=== PATIENT | male | born 1995 | race Caucasian/White ===

== ENCOUNTER 2017-02-11 12:13 | Observation (INO) | payer BC ==
[2017-02-10 11:04] VITALS: BMI 23.0
[~2017-02-11] VITALS: Ht 188 cm; Wt 80.5 kg
[~2017-02-11 12:13] MED LIST: ACETAMINOPHEN 1000 MG/100 ML IV IV ONE; ALPR0.5T PO; AMPH10TA2 PO; AMPH20CA3 PO; CEFAZOLIN 2000 MG/60 ML D5W IV SCH; DEXAMETHASONE SOD INJ 4 MG/ML VIAL ONE; EpHEDrine SULFATE INJ 50 MG/ML AMP ONE; FENTANYL CITRATE INJ 50 MCG/1 ML 2 ML VIAL ONE; GLYCOPYRROLATE INJ 0.2 MG/ML VIAL ONE; LACTATED RINGER'S 1000ML 1,000 ML IV SCH; LIDOCAINE HCL 2% 2 ML VIAL (20MG/ML) ONE; MIDAZOLAM HCL 1 MG/ML 2ML VIAL ONE; NEOSTIGMINE METHYLSULFATE 5 MG/5 ML SYR ONE; ONDANSETRON INJ 2 MG/ML 2 ML VIAL ONE; PHENYLEPHRINE HCL INJ 10 MG/ML VIAL ONE; PROPOFOL IV EMULSION 10 MG/ML 20 ML VIAL IV ONE; ROCURONIUM BROMIDE 10 MG/ML 5 ML VIAL ONE; SUCCINYLCHOLINE CHLORIDE 20 MG/ML 10 ML VIAL IV ONE; SULF800T23 PO
[2017-02-11 12:25] VITALS: BP 148/86; PULSE 69; TEMP 37.1; O2SAT 98; BMI 23.0
[2017-02-11] MEDS ORDERED: BUPIVACAINE 0.5 % 5 MG/1 ML MPF 30ML VIAL ONE (12:27)
--- NOTE | 2017-02-11 13:01 | History & Physical Bridge Note ---
H&P Re-Evaluation Bridge Note: I have examined the patient, reviewed the History & Physical and in the interval since the performance of the History & Physical I have noted the following changes of clinical significance: No changes noted
[2017-02-11] MEDS ORDERED: HYDR-5688 PO (13:36)
[2017-02-11] MEDS ORDERED: PROPOFOL IV EMULSION 10 MG/ML 20 ML VIAL IV ONE (13:37)
[2017-02-11] MEDS ORDERED: DEXAMETHASONE SOD INJ 4 MG/ML VIAL ONE (13:37)
[2017-02-11] MEDS ORDERED: LACTATED RINGER'S 1000ML 1,000 ML IV SCH (13:58)
--- NOTE | 2017-02-11 13:58 | [facility] Post Operative Brief Note ---
Immediate Operative Summary Operative Date Feb 11, 2017. Pre-Operative Diagnosis Pilonidal sinus abcess. Post-Operative Diagnosis Same as preop. Procedure(s) Performed Incision and Drainage of Pilonidial Sinus/Abscess, debridement Surgeon Dr. Reed Program Host Surgeon(s) None. Estimated Blood Loss 10 ml Findings large cavity- 6x4cm , 3-4 cm deep- entire length of old incision Specimens Pilonidal cyst for routine culture and sensitivity, anaerobic. *Check for MRSA* Drains packing Anesthesia gen Complication(s) None Disposition Recovery Room / PACU
[2017-02-11] MEDS ORDERED: HYDROCODONE/ACETAMOPHEN 5/325MG TAB PO PRN ×2 (14:00)
[2017-02-11] MEDS ORDERED: AMPHETAMINE ASP/SULF/DEXTRAMPH ER 20 MG CAP PO PRN (14:00)
[2017-02-11] MEDS ORDERED: HYDROmorphone INJ 0.5 MG/0.5 ML SYR IV PRN (14:00)
[2017-02-11] MEDS ORDERED: HYDROmorphone INJ 1 MG/ML SYR IV PRN (14:00)
[2017-02-11] MEDS ORDERED: ALPRAZOLAM 0.5 MG TAB PO PRN (14:00)
[2017-02-11] MEDS ORDERED: PROMETHAZINE HCL INJ 25 MG in SODIUM CHLORIDE 0.9% 50ML 50 ML IV PRN (14:00)
--- NOTE | 2017-02-11 14:16 | Discharge Instructions ---
Discharge Instructions Date of Service Feb 11, 2017. Admission Reason for Admission: Pilonidal Sinus Abscess Discharge Discharge Diagnosis / Problem: recurrent pilonidal sinus with abscess Discharge Goals Goal(s): Decrease discomfort, Improve function, Improve disease control Activity Recommendations Activity Limitations: as noted below Lifting Limitations: no more than 25 pounds Exercise/Sports Limitations: until after follow-up appointment May Resume Sexual Activity: when tolerated Shower/Bathe: tomorrow Driving or Machine Use: when comfortable . Instructions / Follow-Up Instructions / Follow-Up SPECIAL CARE INSTRUCTIONS: * Cover incisions and change twice daily if possible- wet gauze with dakins solution and gently pack into wound- cover with gauze * take bactrim as ordered * may shower * May use ibuprofen for pain as tolerated. * Expect some swelling and bruising. Call your doctor if: * Temperature above 101 degrees * Pain not relieved by pain medicine ordered * There is increased drainage or redness from any incision * You have any unanswered questions or concerns [phone]. FOLLOW UP VISIT: If not already scheduled, please call the office for a follow-up visit. call office on Wednesday 02/14- to come in that day to have nurses check wound OFFICE PHONE NUMBER: Dr. Reed Office Current Hospital Diet Patient's current hospital diet: Regular Diet Discharge Diet Recommended Diet: Regular Diet Procedures Procedures Performed: Incision and Drainage of Pilonidial Sinus/Abscess, debridement Pending Studies Studies pending at discharge: no Medical Emergencies . Who to Call and When: Medical Emergencies: If at any time you feel your situation is an emergency, please call 911 immediately. . Non-Emergent Contact Non-Emergency issues call your: Primary Care Provider, Surgeon . "Provider Documentation" section prepared by Barrie Reed. VTE Core Measure Inpt VTE Proph given/why not?: SCD's
[2017-02-11] MEDS ORDERED: KETOROLAC TROMETHAMINE 30 MG/ML VIAL ONE (14:29)
[2017-02-11] MEDS ORDERED: ATROPINE SULFATE 0.1 MG/ML 5ML SYR IV PRN (14:30)
[2017-02-11] MEDS ORDERED: ONDANSETRON INJ 2 MG/ML 2 ML VIAL IV PRN (14:30)
[2017-02-11] MEDS ORDERED: MEPERIDINE HCL 25 MG/ML CARP IV PRN (14:30)
[2017-02-11] MEDS ORDERED: HYDROmorphone INJ 2 MG/ML SYR/VIAL IV PRN (14:30)
[2017-02-11] MEDS ORDERED: FLUMAZENIL 0.1 MG/1 ML 10 ML VIAL IV PRN (14:30)
[2017-02-11] MEDS ORDERED: EpHEDrine SULFATE INJ 50 MG/ML AMP IV PRN (14:30)
[2017-02-11] MEDS ORDERED: NALOXONE HCL 0.4 MG/1 ML VIAL/CARP IV PRN (14:30)
[2017-02-11] MEDS ORDERED: PHENYLEPHRINE 100MCG/ML 5ML SYR IV PRN (14:30)
[2017-02-11] MEDS ORDERED: PROMETHAZINE HCL INJ 12.5 MG in SODIUM CHLORIDE 0.9% 50ML 50 ML IV PRN (14:30)
[2017-02-11] MEDS ORDERED: LABETALOL HCL IV 5 MG/ML 20ML IV PRN (14:30)
--- NOTE | 2017-02-11 14:41 | Anesthesiology Progress Note ---
Anesthesia Post Op Note Date & Time Feb 11, 2017 at 14:41 Vital Signs Pain Intensity: 0 Vital Signs Past 12 Hours Date Time Temp Pulse Resp B/P Pulse Ox O2 Delivery O2 Flow Rate FiO2 02/11/17 14:35 36.6 67 13 136/93 100 Nasal Cannula 2 02/11/17 14:25 56 12 138/85 100 Mask 10 02/11/17 14:15 67 13 133/84 100 Mask 10 02/11/17 14:08 36.5 66 12 148/98 100 Mask 10 02/11/17 12:25 37.1 69 18 148/86 98 Room Air Notes Mental Status: alert / awake / arousable, participated in evaluation Pt Amnestic to Procedure: Yes Nausea / Vomiting: adequately controlled Pain: adequately controlled Airway Patency, RR, SpO2: stable & adequate BP & HR: stable & adequate Hydration State: stable & adequate Anesthetic Complications: no major complications apparent
[2017-02-11] MEDS: FENTANYL CITRATE INJ 50 MCG/1 ML 2 ML VIAL IV PRN ×2 (14:48→14:53)
--- NOTE | 2017-02-11 15:07 | OPERATIVE REPORT ---
DATE OF OPERATION: 02/11/2017 NAME OF OPERATION: Incision, drainage and debridement of recurrent pilonidal abscess. PREOPERATIVE DIAGNOSIS: Pilonidal sinus with abscess. POSTOPERATIVE DIAGNOSIS: Same. STAFF SURGEON: Dr. Reed. ANESTHESIA: General. DESCRIPTION OF PROCEDURE: The patient was brought in the operating room and placed on the operating table in the prone position after appropriate anesthetic. His buttocks were taped apart. This was after I was able to shave the hair around the incision which was an old incision in the gluteal crease. The patient had a relatively large area of granulation tissue inferiorly over the coccyx. The site was prepped with Betadine solution and then using a Rosa clamp, I was able to probe the tract. The tract was the entire length of the incision which was approximately 6-7 cm and then on exploration, it did track into the right gluteal area. It was very deep. The old incision was opened, creating a large wound which was approximately 6 x 4 cm and then 3-4 cm deep. There was significant granulation tissue and hair within the wound. The site was cultured. I was able to debride significant granulation tissue and also some scar tissue. I did not sew the skin edges down to the fascia because of the amount of induration and if I tried to debride more tissue it would be a very large wound. I was able to easily pack the site with Betadine gauze and then a gauze covering. The patient tolerated the procedure well and was transferred to the recovery room in stable condition. I attest to the content of the Intraoperative Record and any orders documented therein. Any exceptio ns are noted below.
[2017-02-11] MEDS ORDERED: IV FLUIDS COMPLETED PRN (15:15)
[2017-02-11] MEDS ORDERED: NURSING VERBAL MED ORDER ONE (15:30)
--- NOTE | 2017-02-11 15:58 | Medical Student: [facility] ---
Immediate Operative Summary Operative Date Feb 11, 2017. Pre-Operative Diagnosis Pilonidal Sinus Abscess Post-Operative Diagnosis Same Procedure(s) Performed Pilonidal sinus abscess incision and drainage. Surgeon Dr. Reed Director Acute Surgeon(s) None Estimated Blood Loss 10 ml Findings Pilonidal sinus abscess 6 cm x 3.5 cm. Specimens None Drains None - betadine soaked gauze packing Anesthesia General Disposition Recovery Room / PACU
[2017-02-11 16:01] VITALS: Ht 188 cm; Wt 80.5 kg
[2017-02-11 16:10] VITALS: BP 133/82; PULSE 76; TEMP 36.9; O2SAT 99
[2017-02-11 16:44] VITALS: BP 133/85; PULSE 65; TEMP 36.7; O2SAT 98
[2017-02-11] MEDS: CEFAZOLIN IV 1,000 MG in DEXTROSE 5% 50ML 50 ML IV SCH ×2 (17:50→23:56)
[2017-02-11 17:56] VITALS: BP 136/82; PULSE 66; TEMP 36.8; O2SAT 98
[2017-02-11] MEDS ORDERED: INFLUENZA VIRUS QUAD VACCINE 0.5 ML SYR IM. ONE (18:30)
[2017-02-11] MEDS ORDERED: INFLUENZA ADMINISTRATION CHARGE ONE (18:30)
[2017-02-11 18:43] VITALS: BP 129/78; PULSE 75; TEMP 36.9; O2SAT 98
[2017-02-11] MEDS: KETOROLAC TROMETHAMINE 30 MG/ML VIAL IV. SCH (20:14)
[2017-02-11 23:02] VITALS: BP 125/72; PULSE 67; TEMP 37; O2SAT 99
[2017-02-12] MEDS: KETOROLAC TROMETHAMINE 30 MG/ML VIAL IV. SCH ×3 (02:07→13:34)
[2017-02-12 03:03] VITALS: BP 105/63; PULSE 64; TEMP 36.7; O2SAT 97
[2017-02-12] MEDS: CEFAZOLIN IV 1,000 MG in DEXTROSE 5% 50ML 50 ML IV SCH ×2 (05:49→11:46)
--- NOTE | 2017-02-12 06:18 | Surgery Progress Note ---
Surgery Progress Note Date of Service Feb 12, 2017. Subjective pain controlled- much improved Objective Vital Signs: Date Time Temp Pulse Resp B/P Pulse Ox O2 Delivery O2 Flow Rate FiO2 02/12/17 03:03 36.7 64 12 105/63 97 Room Air 02/12/17 00:00 Room Air 02/11/17 23:02 37.0 67 12 125/72 99 Room Air 02/11/17 18:43 36.9 75 16 129/78 98 Nasal Cannula 2.0 02/11/17 17:56 36.8 66 16 136/82 98 Nasal Cannula 2.0 02/11/17 16:44 36.7 65 16 133/85 98 Nasal Cannula 2.0 02/11/17 16:10 36.9 76 16 133/82 99 Nasal Cannula 2.0 02/11/17 16:01 Nasal Cannula 2.0 02/11/17 15:40 Nasal Cannula 2.0 02/11/17 15:15 61 12 128/75 100 Nasal Cannula 2 02/11/17 15:05 63 12 131/76 100 Nasal Cannula 2 02/11/17 14:55 61 13 124/76 100 Nasal Cannula 2 02/11/17 14:45 63 12 139/86 100 Nasal Cannula 2 02/11/17 14:35 36.6 67 13 136/93 100 Nasal Cannula 2 02/11/17 14:25 56 12 138/85 100 Mask 10 02/11/17 14:15 67 13 133/84 100 Mask 10 02/11/17 14:08 36.5 66 12 148/98 100 Mask 10 02/11/17 12:25 37.1 69 18 148/86 98 Room Air General Appearance: no apparent distress Respiratory/Chest: no respiratory distress Incision(s): intact Laboratory Results: Microbiology Results 02/11/17 Gram Stain, Received Pending 02/11/17 Bacterial Culture, Received Pending Assessment & Plan 02/12/17- s/p incision, drainage debridement of Lg recurrent pilonidal sinus with abscess. Cont IV atbx and wound care. Probable d/c tomorrow
[2017-02-12 07:32] VITALS: BP 122/85; PULSE 50; TEMP 36.9; O2SAT 99
[2017-02-12] MEDS: DAKIN'S SOLN 0.125% QUARTER STRENGTH 473 ML BTL EXT SCH ×2 (08:23→22:17)
[2017-02-12] MEDS ORDERED: DAKIN'S SOLN 0.5% FULL STRENGTH 473ML BTL EXT SCH (09:00)
[2017-02-12 11:40] VITALS: BP 118/51; PULSE 67; TEMP 37; O2SAT 98
[2017-02-12 15:10] VITALS: BP 120/81; PULSE 61; TEMP 36.9; O2SAT 96
[2017-02-12 23:10] VITALS: BP 146/76; PULSE 59; TEMP 37; O2SAT 97
--- NOTE | 2017-02-13 06:20 | Surgery Progress Note ---
Surgery Progress Note Date of Service Feb 13, 2017. Subjective + feeling well, No nausea, No vomiting Objective Vital Signs: Date Time Temp Pulse Resp B/P Pulse Ox O2 Delivery O2 Flow Rate FiO2 02/12/17 23:15 Room Air 02/12/17 23:10 37.0 59 16 146/76 97 Room Air 02/12/17 16:30 Room Air 02/12/17 15:10 36.9 61 18 120/81 96 Room Air 02/12/17 11:40 37.0 67 16 118/51 98 Room Air 02/12/17 08:00 Room Air 02/12/17 07:32 36.9 50 14 122/85 99 Room Air General Appearance: no apparent distress Respiratory/Chest: no respiratory distress Incision(s): intact, drainage (expected) Assessment & Plan 02/13/17- will d/c today- see in office tomorrow and arrange wound care btwn my office and [facility]. cont on Bactrim and use dakins solution 02/12/17- s/p incision, drainage debridement of Lg recurrent pilonidal sinus with abscess. Cont IV atbx and wound care. Probable d/c tomorrow 02/12/17- s/p incision, drainage debridement of Lg recurrent pilonidal sinus with abscess. Cont IV atbx and wound care. Probable d/c tomorrow
[2017-02-13 07:12] VITALS: BP 133/78; PULSE 50; TEMP 36.9; O2SAT 98
[2017-02-13] MEDS: DAKIN'S SOLN 0.125% QUARTER STRENGTH 473 ML BTL EXT SCH (09:18)
--- NOTE | 2017-02-16 13:45 | DISCHARGE SUMMARY ---
PRIMARY DISCHARGE DIAGNOSIS: Pilonidal sinus and abscess. PROCEDURE PERFORMED: Incision and drainage and debridement of recurrent pilonidal abscess. HOSPITAL COURSE: The patient is a 21-year-old male with recurrent pilonidal, admitted through same-day and taken to the operating room for incision and drainage and debridement. The wound was packed. He was transferred to the surgical floor for continued IV antibiotics. On postoperative day 2, he was stable for discharge. IV Ancef was continued throughout admission. The wound was continued to be packed daily. DISCHARGE INSTRUCTIONS: Discharge home and will follow up in the office tomorrow for packing change. We will arrange for dressing changes either at the office or at [facility]. Continue Dakin's solution. DISCHARGE MEDICATIONS: Bactrim DS 1 tablet b.i.d., [place] 1-2 tablets every 4 hours as needed. Continue home meds, Adderall 10 mg as needed, Adderall XR 20 mg daily, and Xanax 1 mg every 6 hours as needed.
== END 2017-02-13 10:14 | disposition home or self-care (01) ==
LOC: ENRESERVDT → ENRESERVTM → C.ACU 12:13 → C.MSN 14:07
PROVIDERS: ADMIT Surgery; ATTEND Surgery
DX: L05.01 Pilonidal cyst with abscess (principal)